=== PATIENT | female | born 1980 | race Two or more races ===

== ENCOUNTER → 2021-05-01 14:19 | Outpatient (BNVA) | payer MEDICAID, SELFPAY | PROVIDERS: Visit Provider Advanced Practice Midwife ==

== ENCOUNTER 2021-11-24 18:40 | Emergency (ER) | payer OTHER, SELFPAY ==
--- NOTE | ~2021-11-24 | XR_ITS ---
EXAMINATION: XR CHEST CLINICAL INFORMATION: Shortness of breath COMPARISON: 11/24/2021 TECHNIQUE: Frontal view of the chest was obtained. FINDINGS: The lungs are well expanded. Mild bronchial wall thickening present. Left basilar linear atelectasis. No dense consolidation. No edema or effusion. No pneumothorax. The cardiomediastinal silhouette is within normal limits. No acute osseous abnormality. XR/XR chest 1V IMPRESSION: No dense consolidation. Bronchial wall thickening can be seen with a small airways process such as asthma or atypical/viral infection.
--- NOTE | ~2021-11-24 | XR_ITS ---
EXAMINATION: XR CHEST CLINICAL INFORMATION: SOB COMPARISON: Chest 01/18/2019 TECHNIQUE: Frontal view of the chest was obtained. FINDINGS: There is cardiomegaly with increased pulmonary vascularity likely volume overload or mild CHF. There is platelike atelectasis in the lingula. Rest of the lungs are clear. XR/XR chest 1V IMPRESSION: Increase bilateral parotid vascularity with cardiomegaly mild CHF versus volume overload. Platelike atelectasis in the lingula.
[2021-11-24 18:48] VITALS: BP 156/75; PULSE 136; RESP 18; TEMP 37.1; O2SAT 93; BMI 43.4
--- NOTE | 2021-11-24 18:51 | ECG_ITS ---
Test Reason : SHORTNESS OF BREATH Blood Pressure : / mmHG Vent. Rate : 129 BPM Atrial Rate : 129 BPM P-R Int : 150 ms QRS Dur : 084 ms QT Int : 296 ms P-R-T Axes : 036 013 -02 degrees QTc Int : 433 ms Sinus tachycardia Nonspecific ST abnormality Abnormal ECG When compared with ECG of 18-JAN-2019 11:37, Vent. rate has increased BY 61 BPM Referred By: Generic ED Physician Electronically Signed By:Ibrahima Hernandez
[2021-11-24 19:44] LABS: MANUAL DIFF FLAG NO
[2021-11-24 19:46] LABS: Hematocrit 41.5 % (37.0-47.0); Hemoglobin 13.4 g/dl (12.0-16.0); Imm Gran Abs Auto 0.02 X10*3/uL (0.00-0.03); Imm Gran Pct Auto 0.2 % (0.0-0.4); Lymphocytes Absolute Auto 0.5 X10*3/uL (1.2-4.9); Lymphocytes Percent Auto 6.2 % (20-40); Mean Corpuscular HGB Conc 32.3 g/dl (31.0-35.0); Mean Corpuscular Hemoglobin 28.9 pg (27.0-33.0); Mean Corpuscular Volume 89.4 fL (80.0-98.0); Mean Platelet Volume 10.5 fL (9.4-12.3); Monocytes Absolute Auto 0.4 X10*3/uL (0.1-1.2); Monocytes Percent Auto 4.5 % (2-11); Neutrophils Absolute Auto 7.3 x10*3/uL (2.0-8.3); Neutrophils Percent Auto 89.1 % (45-73); Platelet Count 199 X10*3/uL (160-400); Red Blood Count 4.64 X10*6/uL (4.20-5.50); Red Cell Distribution Width 14.1 % (11.0-16.0); White Blood Count 8.2 X10*3/uL (4.8-10.8)
[2021-11-24 20:04] LABS: COVID-19 Test Negative (Negative)
[2021-11-25 01:05] VITALS: BP 143/63; PULSE 116; RESP 22; O2SAT 96
[2021-11-25 01:15] LABS: Hematocrit 41.9 % (37.0-47.0); Hemoglobin 13.2 g/dl (12.0-16.0); Imm Gran Abs Auto 0.02 X10*3/uL (0.00-0.03); Imm Gran Pct Auto 0.3 % (0.0-0.4); Lymphocytes Absolute Auto 0.8 X10*3/uL (1.2-4.9); Lymphocytes Percent Auto 12.3 % (20-40); MANUAL DIFF FLAG NO; Mean Corpuscular HGB Conc 31.5 g/dl (31.0-35.0); Mean Corpuscular Volume 88.8 fL (80.0-98.0); Mean Platelet Volume 10.2 fL (9.4-12.3); Monocytes Absolute Auto 0.4 X10*3/uL (0.1-1.2); Neutrophils Percent Auto 80.4 % (45-73); Platelet Count 218 X10*3/uL (160-400); Red Blood Count 4.72 X10*6/uL (4.20-5.50); Red Cell Distribution Width 14.1 % (11.0-16.0); White Blood Count 6.2 X10*3/uL (4.8-10.8)
[2021-11-25 01:23] LABS: Add Laboratory Test SN
[2021-11-25 01:42] LABS: HCG Quantitative < 2 mIU/mL
[2021-11-25 01:45] LABS: Alanine Aminotransferase 31 U/L (0-31); Alkaline Phosphatase 56 U/L (39-117); Anion Gap 15 (12-20); Aspartate Amino Transferase 23 U/L (5-31); Bilirubin Total 0.5 mg/dL (0.0-1.0); Blood Urea Nitrogen 6 mg/dL (9-16); Calcium 8.8 mg/dL (8.4-10.2); Carbon Dioxide 25 mmol/L (22-29); Chloride 102 mmol/L (96-108); Creatinine Clr Calc Pharmacy 112.3; Estimated Glomerular Filt Rate > 60; Glucose Random 121 mg/dL (60-115); Potassium 3.7 mmol/L (3.3-5.1); Sodium 138 mmol/L (135-145); Total Protein 7.1 g/dL (6.5-8.0)
[2021-11-25 01:47] LABS: B Type Natriuretic Peptide < 10 pg/mL (<100)
--- NOTE | 2021-11-25 01:57 | ED_ITS ---
HPI - URI/Sore Throat General Chief Complaint: Upper Respiratory Symptoms Stated Complaint: +covid sob Time Seen by Provider: 11/25/21 00:56 History of Present Illness HPI Narrative: Patient is a 41-year-old female presents today with coughing upper respiratory symptoms for the last 2 days. Patient tested positive for COVID on November. At that time she had coughing upper respiratory symptoms. Over the last week symptom has been improving. Has gotten worse again the last 2 days. Patient feels generalized malaise. Coughing. Feels very tired. Patient from home. No travel history. No leg swelling. No heart problem. No nausea no vomiting no diaphoresis. Patient not immunized for COVID Related Data Previous Rx's Medication Instructions Recorded azithromycin 250 mg tablet See Rx Instructions .ROUTE 11/25/21 .COMPLEX #6 tab benzonatate 100 mg capsule 100 mg PO TID PRN #14 cap 11/25/21 Allergies Allergy/AdvReac Type Severity Reaction Status Date / Time No Known Allergies Allergy Unverified 07/25/20 14:47 Review of Systems Review of Systems: Positive coughing congestion upper respiratory symptoms Positive generalized malaise Yes all other systems are reviewed and are negative [facility] Past Medical History Attestation statement: The following information was validated with the patient. Social History Social History Advance Directives: No Patient : No Physical Exam Vital Signs: Vital Signs: Last Vital Signs Temp 98.7 F 11/24/21 18:48 Pulse 116 H 11/25/21 01:05 Resp 22 H 11/25/21 01:05 BP 143/63 H 11/25/21 01:05 Pulse Ox 96 11/25/21 01:05 BMI result Body Mass Index 43.4 Appearance: Alert. Oriented X3. No acute distress. Eyes: Pupils equal, round and reactive to light. ENT: Pharynx normal. Neck: Normal inspection. Neck supple. No lymph nodes noted. No crepitus CVS: Normal heart rate and rhythm. Pulses normal. Normal S1 and S2 Respiratory: No respiratory distress. Breath sounds normal. No Wheezing. No rales Abdomen: Soft and nontender. No rigidity. No distention. good BS x4 Skin: Skin warm and dry. Normal skin color. Normal skin turgor. Extremities: No lower extremity edema. Neurovascular intact to all extremities. No Lacerations. No Rash Neuro: Oriented X 3. No motor deficit. No sensory deficit. Moving all extermities. No slurred speech MDM - URI/Sore Throat MDM Narrative Medical decision making narrative: Patient's chest x-ray showed question CHF versus mild bronchial thickening. There is no evidence for congestive heart failures patient's BNP was less than 10. More likely with the upper respiratory symptoms patient's symptoms consistent with upper respiratory infection. Her COVID test today was negative. Her white count was normal. Patient's O2 sat was 95% on room air. Will start patient on cough medication and a Z-Yifan. Will have patient closely follow up on an outpatient basis. Question viral illness causing patient's upper respiratory symptoms. In stable condition Differential Diagnosis Differential diagnosis: Likely upper respiratory infection Medical Records Attestation: I reviewed the patient's medical records. Lab Data Attestation: I reviewed the patient's lab results. Result diagrams: 11/25/21 01:10 11/25/21 01:10 Labs: Lab Results 11/24/21 11/24/21 11/25/21 Range/Units 19:33 19:38 01:10 WBC 8.2 (4.8-10.8) X10*3/uL RBC 4.64 (4.20-5.50) X10*6/uL Hgb 13.4 (12.0-16.0) g/dl Hct 41.5 (37.0-47.0) % MCV 89.4 (80.0-98.0) fL MCH 28.9 (27.0-33.0) pg MCHC 32.3 (31.0-35.0) g/dl RDW 14.1 (11.0-16.0) % Plt Count 199 (160-400) X10*3/uL MPV 10.5 (9.4-12.3) fL Immature Gran % (Auto) 0.2 (0.0-0.4) % Neut % (Auto) 89.1 H (45-73) % Lymph % (Auto) 6.2 L (20-40) % Jasper % (Auto) 4.5 (2-11) % Eos % (Auto) 0.0 (0-4) % Baso % (Auto) 0.0 (0-2) % Lymph # (Auto) 0.5 L (1.2-4.9) X10*3/uL Jasper # (Auto) 0.4 (0.1-1.2) X10*3/uL Eos # (Auto) 0.0 (0.0-0.4) X10*3/uL Baso # (Auto) 0.0 (0.0-0.2) X10*3/uL Abs Immat Gran (auto) 0.02 (0.00-0.03) X10*3/uL Absolute Neuts (auto) 7.3 (2.0-8.3) x10*3/uL Absolute Nucleated RBC 0.000 (0.0-0.012) X10*3/uL Nucleated RBC % (auto) 0.0 (0.0-0.2) /100WBC Sodium 138 (135-145) mmol/L Potassium 3.7 (3.3-5.1) mmol/L Chloride 102 (96-108) mmol/L Carbon Dioxide 25 (22-29) mmol/L Anion Gap 15 (12-20) BUN 6 L (9-16) mg/dL Creatinine 0.74 (0.5-1.4) mg/dL Estim Creat Clear Calc 112.3 Estimated GFR > 60 Random Glucose 121 H (60-115) mg/dL Calcium 8.8 (8.4-10.2) mg/dL Total Bilirubin 0.5 (0.0-1.0) mg/dL AST 23 (5-31) U/L ALT 31 (0-31) U/L Alkaline Phosphatase 56 (39-117) U/L B-Natriuretic Peptide (<100) pg/mL Total Protein 7.1 (6.5-8.0) g/dL Albumin 4.0 (3.5-5.0) g/dL Beta HCG, Quant < 2 mIU/mL COVID-19 (AVE) Negative (Negative) COVID-19 Clin Com See Note 11/25/21 11/25/21 Range/Units 01:10 01:10 WBC 6.2 (4.8-10.8) X10*3/uL RBC 4.72 (4.20-5.50) X10*6/uL Hgb 13.2 (12.0-16.0) g/dl Hct 41.9 (37.0-47.0) % MCV 88.8 (80.0-98.0) fL MCH 28.0 (27.0-33.0) pg MCHC 31.5 (31.0-35.0) g/dl RDW 14.1 (11.0-16.0) % Plt Count 218 (160-400) X10*3/uL MPV 10.2 (9.4-12.3) fL Immature Gran % (Auto) 0.3 (0.0-0.4) % Neut % (Auto) 80.4 H (45-73) % Lymph % (Auto) 12.3 L (20-40) % Jasper % (Auto) 7.0 (2-11) % Eos % (Auto) 0.0 (0-4) % Baso % (Auto) 0.0 (0-2) % Lymph # (Auto) 0.8 L (1.2-4.9) X10*3/uL Jasper # (Auto) 0.4 (0.1-1.2) X10*3/uL Eos # (Auto) 0.0 (0.0-0.4) X10*3/uL Baso # (Auto) 0.0 (0.0-0.2) X10*3/uL Abs Immat Gran (auto) 0.02 (0.00-0.03) X10*3/uL Absolute Neuts (auto) 5.0 (2.0-8.3) x10*3/uL Absolute Nucleated RBC 0.000 (0.0-0.012) X10*3/uL Nucleated RBC % (auto) 0.0 (0.0-0.2) /100WBC Sodium (135-145) mmol/L Potassium (3.3-5.1) mmol/L Chloride (96-108) mmol/L Carbon Dioxide (22-29) mmol/L Anion Gap (12-20) BUN (9-16) mg/dL Creatinine (0.5-1.4) mg/dL Estim Creat Clear Calc Estimated GFR Random Glucose (60-115) mg/dL Calcium (8.4-10.2) mg/dL Total Bilirubin (0.0-1.0) mg/dL AST (5-31) U/L ALT (0-31) U/L Alkaline Phosphatase (39-117) U/L B-Natriuretic Peptide < 10 (<100) pg/mL Total Protein (6.5-8.0) g/dL Albumin (3.5-5.0) g/dL Beta HCG, Quant mIU/mL COVID-19 (AVE) (Negative) COVID-19 Clin Com Discharge Plan Discharge Clinical Impression: Upper respiratory infection, Bronchitis Patient Disposition: Home, Self-Care Instructions: Upper Respiratory Infection (ED) Additional Instructions: Home isolation to all symptom has resolved for at least 2 days. Prescriptions: New azithromycin 250 mg tablet See Rx Instructions .ROUTE .COMPLEX Qty: 6 RF: 0 benzonatate 100 mg capsule 100 mg PO TID PRN (Reason: cough) Qty: 14 RF: 0 Referrals: [facility] [Physician] - 2 days
[2021-11-25 02:31] VITALS: BP 112/55; PULSE 98; RESP 25; O2SAT 94; O2SAT 95
--- NOTE | 2021-11-25 02:36 | PC.NURSE ---
Discharge instruction given and reviewed . pt verbalized under standing. no sign of distress.
== END 2021-11-25 02:40 | disposition home or self-care (01) ==
PROVIDERS: Physician Assistant Medical; Emergency Provider Emergency Medicine Emergency Medical Services
DX: J06.9 Acute upper respiratory infection, unspecified (principal); J40 Bronchitis, not specified as acute or chronic; Z20.822 Contact with and (suspected) exposure to COVID-19
CPT/HCPCS: 36415; 71045; 80053; 83880; 84702; 85025; 87635; 93005; 99283; 99285

== ENCOUNTER 2024-10-24 08:37 | Emergency (ER) | payer SELFPAY ==
--- NOTE | ~2024-10-24 | XR_ITS ---
EXAMINATION: XR KNEE, RIGHT CLINICAL INFORMATION: fell last night, unable to straighten the leg COMPARISON: None available. TECHNIQUE: Four views of the right knee. FINDINGS: No acute fracture or dislocation is appreciated. No lytic or sclerotic bony lesion is seen. No periosteal reaction is noted. Mild tricompartmental osteoarthritis. Question trace suprapatellar fluid. No suspicious soft tissue calcification identified. XR/XR knee RT 3V IMPRESSION: Findings as above. Electronically signed by: Rolando Hadley MD 10/24/2024 12:21 PM [facility]
[2024-10-24 08:43] VITALS: BP 145/72; PULSE 95; RESP 16; TEMP 36.6; O2SAT 96; BMI 45.3
--- NOTE | 2024-10-24 10:45 | ED.GENADULT ---
HPI - General Adult General Chief complaint: Extremity Injury, Lower Stated complaint: fall r knee inj Time Seen by Provider: 10/24/24 10:04 Source: patient Mode of arrival: ambulatory Limitations: no limitations History of Present Illness ED Provider: Lucas Amaya PA-C HPI narrative: 44 yold male with no past medical history presents to ED for right knee pain. Patient states last night while mopping she fell onto her right knee and twisted her right knee. Patient states the floor was wet which caused her to slip. Patient denies hitting head or loss of consciousness. Patient states unable to bear weight on right knee. Patient denies any head trauma or any other complaints Related Data Previous Rx's ?Medication ?Instructions ?Recorded azithromycin 250 mg tablet See Rx Instructions PO .COMPLEX 11/25/21 upper resp infection #6 tabs benzonatate 100 mg capsule 100 mg PO TID PRN cough #14 caps 11/25/21 naproxen 500 mg tablet 500 mg PO BID PRN pain 7 days #14 10/24/24 tabs Allergies Allergy/AdvReac Type Severity Reaction Status Date / Time No Known Allergies Allergy Verified 10/24/24 08:45 Review of Systems Review of Systems: Right knee pain Yes all other systems are reviewed and are negative PMFSH Social History Social History Patient Tobacco Use Status: Never used Tobacco Advance Directives: No Advance Directives Information Provided: Yes Do you have a plan to hurt others: No Plan Physical Exam ED Vital Signs: Vital Signs - 24 hr 10/24/24 08:43 10/24/24 11:05 10/24/24 13:48 Temperature 97.9 F 97.9 F 97.9 F Pulse Rate 95 71 71 Respiratory Rate 16 16 16 Blood Pressure 145/72 H 106/55 L 106/55 L Pulse Oximetry 96 98 98 Oxygen Delivery Method Room Air Room Air Room Air BMI result Body Mass Index 45.3 Const General: cooperative, healthy appearing, comfortable, no acute distress, well developed, alert, awake and Physically active Orientation/consciousness: patient oriented x3 HENMT Head: Yes normal to inspection, Yes No palpable skull fracture present, Yes normocephalic, Yes atraumatic and No abrasion Eyes General: appearance normal, both eyes and all related structures Neck Neck: Yes normal visual inspection, Yes full ROM, Yes no lymphadenopathy, Yes no meningeal signs, Yes trachea midline, Yes supple, No anterior neck swelling and No tender Chest Chest palpation & inspection: normal inspection of the chest and normal palpation of entire chest wall Resp Effort & Inspection: normal respiratory effort and able to speak in complete sentences Auscultation: clear to auscultation bilaterally Cardio Jugular venous distension: no JVD Heart sounds: S1 normal heart sound present and S2 normal heart sound present GI Inspection: Yes normal to inspection Palpation (GI): Soft to palpation, not firm, nontender, no guarding and not rigid General: Yes no CVA tenderness Back/Spine/Pelvis Back: no CVA tenderness and No back tenderness Skin General skin exam: no rashes or lesions noted, elasticity normal and turgor normal Neuro General: patient oriented x3, gait normal, tone normal, moves all extremities, Normal light touch and pain sensation, no meningeal signs, no focal motor deficits, CN's II-XI intact bilaterally and normal sensation to monofilament Extrem General: Yes normal to inspection, Yes full ROM and Yes capillary refill normal Knee images: 1. Positive for tenderness on palpation. Negative for erythema, ecchymosis loss stiffness. Positive for slight knee swelling without any warmth or coldness. Motor exam limited due to pain. Rest of extremity normal. Motor/neuro/vascular exam intact 2. Positive for tenderness on palpation. Negative for erythema, ecchymosis loss stiffness. Positive for slight knee swelling without any warmth or coldness. Motor exam limited due to pain. Rest of extremity normal. Motor/neuro/vascular exam intact Psych Appearance: grossly normal, well kempt and not disheveled Medications Administered Discontinued Medications Generic Name Dose Route Start Last Admin Trade Name Freq PRN Reason Stop Dose Admin Ketorolac Tromethamine 30 mg 10/24/24 10:54 10/24/24 11:26 Ketorolac Tromethamine 30 Mg/Ml Vial IM 10/24/24 10:55 30 mg ONCE ONE Administration Medical Decision Making Medical Decision Making MDM Narrative: 44-year-old female presents to ED for right knee pain after trauma last night. X-ray ordered. 1:31pm: Patient's right knee x-ray shows osteoarthritis and trace of fluid. Patient explained she needs to follow up orthopedic surgeon to make sure she does not have a small tear in the meniscus or ligament most likely will need MRI. Patient placed in crutches and Aston wrap. Not suspecting septic joint, arterial occlusion, DVT, osteomyelitis, Differential Diagnosis Differential Diagnoses: The differential diagnosis associated with the presentation includes (Dislocation, fracture, throat) Admission/Observation Consideration of admission/observation: Escalation of care including admission/observation considered Independent Interpretation I performed an independent interpretation of an: Plain X-Ray Radiology Impression Discussion of test interpretation with radiology: I have reviewed the radiologist's reading. Independent Historian Clinical information obtained from an independent historian. History obtained from or confirmed by: Other (patient) External Record Review External record reviewed: Other (prior visits) Prescription Management I considered prescription management with: Pain Medication Discharge Plan Discharge Clinical Impression: Knee sprain, Osteoarthritis Patient Disposition: Home, Self-Care Instructions: Knee Sprain (ED), Osteoarthritis (ED), Swollen Knee Joint (ED), R.I.C.E. Treatment (ED) Additional Instructions: You will need follow-up with orthopedic surgeon to get him an MRI to make sure there is no meniscus/ligament tear. Return to the ED for severe pain, worsening knee swelling, calf pain, redness, bluish discoloration, chest pain, shortness of breath, fever, chills, any other concerning symptoms. FINDINGS: No acute fracture or dislocation is appreciated. No lytic or sclerotic bony lesion is seen. No periosteal reaction is noted. Mild tricompartmental osteoarthritis. Question trace suprapatellar fluid. No suspicious soft tissue calcification identified. XR/XR knee RT 3V IMPRESSION: Findings as above. Electronically signed by: Rolando Hadley MD 10/24/2024 12:21 PM [facility] Dictated By: Rolando Hadley Signed By: <Electronically signed by Rolando Hadley in OV> 10/24/24 1221 Prescriptions: New naproxen 500 mg tablet 500 mg PO BID PRN (Reason: pain) 7 Days Qty: 14 0RF No Action azithromycin 250 mg tablet See Rx Instructions .ROUTE .COMPLEX Qty: 6 0RF Rx Instructions: take 500 mg today (day 1), then 250 mg for 4 days (days 2-5) benzonatate 100 mg capsule 100 mg PO TID PRN (Reason: cough) Qty: 14 0RF [place] [facility] [place] [facility] [place] Group[place] (Right knee arthritis/knee sprain. Joint effusion) Stand Alone Forms: Work/School Release Interventions: ED Discharge Assessment Last Done: 10/24/24 13:48 Discharge Date/Time: 10/24/24 13:49 Print Language: Syriac
[2024-10-24 11:05] VITALS: BP 106/55; PULSE 71; RESP 16; TEMP 36.6; O2SAT 98
[2024-10-24] MEDS: Ketorolac Tromethamine 30 MG/ML VIAL IM (11:26)
[2024-10-24 13:48] VITALS: BP 106/55; PULSE 71; RESP 16; TEMP 36.6; O2SAT 98
== END 2024-10-24 13:49 | disposition home or self-care (01) ==
PROVIDERS: Emergency Provider Emergency Medicine Emergency Medical Services
DX: S83.91XA Sprain of unspecified site of right knee, initial encounter (principal); M17.11 Unilateral primary osteoarthritis, right knee; W01.0XXA Fall on same level from slipping, tripping and stumbling without subsequent striking against object, initial encounter; Y93.89 Activity, other specified; Y92.098 Other place in other non-institutional residence as the place of occurrence of the external cause; Y99.8 Other external cause status
CPT/HCPCS: 73562; 96372; 99283; 99284; J1885

== ENCOUNTER 2024-11-16 11:30 | Outpatient (REF) | payer MEDICAID, SELFPAY ==
--- NOTE | ~2024-11-16 | XR_ITS ---
EXAMINATION: XR KNEE, LEFT CLINICAL INFORMATION: M25.562 - Pain in left knee COMPARISON: None available. TECHNIQUE: AP view of the left knee. FINDINGS: Normal bony mineralization. No fracture, dislocation, or suspicious bone lesion. Mild medial compartment joint space narrowing. Minimal/early osteophytic marginal spurring. Lateral compartment also demonstrates small spurs. The patella appears somewhat laterally positioned although this may be projectional. There is no soft tissue abnormality. XR/XR knee LT 1V IMPRESSION: 1. No acute findings left knee. Mild osteoarthrosis. See above. Electronically signed by: Herve Hector MD 11/22/2024 02:06 PM [facility]
--- NOTE | ~2024-11-16 | XR_ITS ---
EXAMINATION: XR KNEE, RIGHT CLINICAL INFORMATION: M25.569 - Pain in unspecified knee COMPARISON: October 24, 2024. TECHNIQUE: [employer] view of the right knee. FINDINGS: Submitted for interpretation on November 22, 2024. Limited examination demonstrated no acute cortical disruption. No lytic or blastic lesions. XR/XR knee RT 2V IMPRESSION: No acute fracture on a single sunrise view. Please refer to the additional images. Electronically signed by: Juan Carlos Padilla MD 11/22/2024 09:07 AM [facility]
== END 2024-11-16 11:31 | disposition home or self-care (01) ==
LOC: HO.HOSX 11:30
PROVIDERS: Visit Provider Physician Assistant
DX: M25.562 Pain in left knee (principal); M17.11 Unilateral primary osteoarthritis, right knee; M23.91 Unspecified internal derangement of right knee
CPT/HCPCS: 73560; 99212

== ENCOUNTER 2024-11-16 13:56 | Outpatient (AMB) | payer MEDICAID, SELFPAY ==
--- NOTE | 2024-11-16 14:07 | A.OFFVIS_ITS ---
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 Patient reports slipping on a wet floor while she was mopping, she landed on her right knee. She presented to [facility] [place] where x-rays were taken and referred to orthopedics. Currently she has constant pain that is located at the lateral aspect of knee. States she feels a bump. Occasional tingling in prolong walking. Finds relief with use of a knee brace. No previous tx. 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 She states she was mopping her floor at home when she fell. She developed pain along the medial aspect of the knee. She denies lateral aspect pain. She states since the injury she continues to have pain with daily activities such as bending kneeling twisting and pivoting. She does feel as though her leg is going to give out with certain activities. 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 [facility] Surgical History (Updated 11/16/24 @ 14:13 by CORTES Kim) Hx of cholecystectomy Social History (Updated 11/16/24 @ 14:13 by CORTES Kim) Patient Tobacco Use Status: Never used Tobacco Current occupational status: employed Current occupation: corporate general manager-[employer] Review of Systems Const All systems reviewed & are unremarkable except as noted in HPI and below Physical Exam Vital Signs: BMI result Body Mass Index 45.3 Const General: cooperative and no acute distress Orientation/consciousness: patient oriented x3 Resp Effort & Inspection: normal respiratory effort and able to speak in complete sentences Cardio Peripheral pulses: Peripheral pulses 2+ throughout Neuro General: patient oriented x3 Extrem Other: Right knee skin intact, no erythema or joint effusion. Tenderness along the medial joint line. No retropatellar tenderness present no pain with patellar grind. ROM full with crepitus. positive steinmans. No ligamentous laxity. NVI. Results Reviewed Results Reviewed: X-rays of the right knee obtained in the office today show mild medial compartment narrowing with lateralization of the patella. Assessment & Plan Assessment & Plan (1) Patellofemoral arthritis of right knee: Code(s): M17.11 - Unilateral primary osteoarthritis, right knee Category: Medical (2) Internal derangement of right knee: Code(s): M23.91 - Unspecified internal derangement of right knee Category: Medical Plan Given her limitations on a daily basis along with her clinical exam findings an MRI of the right knee has been ordered to further evaluate the integrity of the meniscus. I did discuss treatment options with and without surgical intervention. She expressed understanding and will see me back once the scan is complete. Orders: Orders XR knee RT 2V Today Mata Nation PA-C M25.569 - Pain in unspecified knee XR knee LT 1V Today Mata Nation PA-C M25.562 - Pain in left knee Medications: Discontinued azithromycin Discontinued Reason: Patient no longer taking take 500 mg today (day 1), then 250 mg for 4 days (days 2-5) 6 tabs 0RF upper resp infection CORTES Kim benzonatate Discontinued Reason: Patient no longer taking 100 mg PO TID PRN 14 caps 0RF cough CORTES Kim naproxen Discontinued Reason: Patient no longer taking 500 mg PO BID PRN 14 tabs 0RF pain 7 days CORTES Kim Coding Level of Care Code New Pt Level 3 (54662) Complex EM visit Add On G2211 Diagnoses Patellofemoral arthritis of right knee M17.11 Internal derangement of right knee M23.91
[2024-11-16 14:13] VITALS: BMI 45.3
== END 2024-11-16 14:30 | disposition home or self-care (01) ==
PROVIDERS: Visit Provider Physician Assistant
DX: M17.11 Unilateral primary osteoarthritis, right knee (principal); M23.91 Unspecified internal derangement of right knee
CPT/HCPCS: 99203